=== PATIENT | female | born 1975 | race Caucasian/White ===

== ENCOUNTER → 2016-12-30 | Outpatient (CLI) | payer OTHER ==
--- NOTE | 2016-12-31 08:56 | MAM ---
EXAM DESCRIPTION: 3D Screening BILATERAL CLINICAL HISTORY: 41 yearsFemaleSCREENING. Postmenopausal. COMPARISON: Baseline study at this facility. No prior reports available. TECHNIQUE: Bilateral CC and MLO projection full-field images, 3-D tomosynthesis digital mammographic technique. Also bilateral synthesized CC/ MLO full-field images. CAD not utilized. FINDINGS: The breast parenchymal density pattern is: Heterogeneously dense breast tissue, which may obscure small masses. No skin thickening or nipple retraction bilateral axillary lymph nodes. Focal asymmetry in the middle third of the right breast upper outer quadrant at approximately 1030 clock position. Approximately 2 cm in diameter, and 6.5 cm from the nipple. Not associated with microcalcifications or mass density. No focal, stellate mass or density, , and no suspicious microcalcifications bilaterally. No focal asymmetry in the left breast. IMPRESSION: BI-RADS CATEGORY: 0 - INCOMPLETE- Need additional imaging evaluation. FOLLOW-UP: Recall for additional imaging: Targeted right breast ultrasound of the region of interest in the right breast, where described. Written communication explaining the results and follow-up will be mailed to the patient and referring care provider. Electronically signed by: Mckay Renae MD 12/31/2016 8:54 AM CDT Workstation: [id number]
== END ==
LOC: MAMMO 10:00
PROVIDERS: ATTEND Family Medicine
DX: Z12.31 Encounter for screening mammogram for malignant neoplasm of breast (principal)

== ENCOUNTER → 2017-01-06 | Outpatient (CLI) | payer OTHER ==
--- NOTE | 2017-01-06 13:29 | US ---
EXAM DESCRIPTION: Breast,Right CLINICAL HISTORY: 41 years Female, ABNORMAL MAMMO COMPARISON: Direct comparison with 3-D mammogram dated December 30, 2016 FINDINGS: Dense fibrous breast parenchyma is noted. There is no solid, cystic, or worrisome abnormality. IMPRESSION: BIRAD CATEGORY: 1 NEGATIVE Electronically signed by: Pradeep Lopez MD 01/06/2017 1:27 PM CDT Workstation: [employer]
== END | disposition home or self-care (01) ==
LOC: MAMMO 15:47
PROVIDERS: ATTEND Family Medicine
DX: R92.8 Other abnormal and inconclusive findings on diagnostic imaging of breast (principal)